=== PATIENT | female | born 1965 | race American Indian/Alaskan Native ===

== ENCOUNTER 2017-12-21 17:18 | Emergency (ER) | payer MEDICARE ==
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
[2017-12-21] MEDS ORDERED: MOTRIN PO ONE ×2 (17:53→17:54)
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
--- NOTE | 2017-12-21 19:07 | XRay Report ---
FINAL REPORT EXAM: XR SPINE LUMBOSACRAL 2-3V HISTORY: lower back pain COMPARISON: None available. FINDINGS: Three views of the lumbar spine obtained. Mild loss of disc height L5-S1 level. Remaining disc heights are preserved. Pedicles are intact. No spondylolisthesis. Minimal levoconvex curvature which may be positional. IMPRESSION: Mild scoliotic curvature. Mild loss of disc height L5-S1 level.
[2017-12-21 20:00] VITALS: BP 139/88
== END 2017-12-21 19:58 | disposition home or self-care (01) ==
LOC: ED 17:18
DX: M54.5 Low back pain (principal); M25.561 Pain in right knee; M25.562 Pain in left knee; M54.2 Cervicalgia; F17.200 Nicotine dependence, unspecified, uncomplicated; Z86.2 Personal history of diseases of the blood and blood-forming organs and certain disorders involving the immune mechanism; Z98.51 Tubal ligation status; V87.7XXA Person injured in collision between other specified motor vehicles (traffic), initial encounter; Y93.89 Activity, other specified; Y99.8 Other external cause status; Y92.410 Unspecified street and highway as the place of occurrence of the external cause
CPT/HCPCS: 72040; 72100; 99283

== ENCOUNTER 2019-04-23 16:31 | Emergency (ER) | payer OTHER, MEDICARE ==
[2019-04-23 16:57] VITALS: BP 133/82
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
[2019-04-23] MEDS ORDERED: IBUPROFEN PO ONE (18:25)
[2019-04-23] MEDS ORDERED: DECADRON IM ONE (18:26)
== END 2019-04-23 18:48 | disposition home or self-care (01) ==
LOC: ED 16:31
DX: M54.2 Cervicalgia (principal); V89.2XXA Person injured in unspecified motor-vehicle accident, traffic, initial encounter; Y93.89 Activity, other specified; Y92.410 Unspecified street and highway as the place of occurrence of the external cause; Y99.8 Other external cause status
CPT/HCPCS: 72040; 73030; 99283; J1100